=== PATIENT | male | born 1990 ===

== ENCOUNTER 2017-01-05 15:17 | Emergency (ER) | payer OTHER ==
[2017-01-05 15:35] VITALS: BP 128/67
--- NOTE | 2017-01-05 15:57 | ERNOTE ---
Integumentary HPI - Narrative Date of Service: 01/05/17 - General Presenting Symptoms: abscess Time Seen by Provider: 01/05/17 15:43 Source: patient Exam Limitations: no limitations - Immun/Allergies/Home Medications Immunizations: IMMUNIZATION HX Immunizations Up to Date Yes History of Influenza Vaccine No Hx Pneumococcal Vaccination No Allergies/Adverse Reactions: Allergies Allergy/AdvReac Type Severity Reaction Status Date / Time No Known Allergies Allergy Unverified 01/05/17 15:35 Home Medications: HOME MEDICATIONS Sulfamethoxazole/Trimethoprim [Bactrim Ds] 1 tab PO BID 01/05/17 [Last Taken ] - History of Present Illness Narrative: Pt. comes in from retirement with c/o abscess in his R volar and dorsal hand in the soft tissue between her R thumb and first finger for a week. Pt. was seen by his PCP for this and started on amoxacillin and then was switched to Bactrim two days ago after pt. was known to have a hx of MRSA. Pt. 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 Review of Systems - Review of Systems Constitutional: Present: no symptoms reported. Absent: recent illness, fever, chills, weakness, fatigue, malaise EYE: Present: no symptoms reported ENT: Present: no symptoms reported Respiratory: Present: no symptoms reported. Absent: shortness of breath, cough , wheezing Cardiology: Present: no symptoms reported. Absent: chest pain, palpitations, edema Gastrointestinal/Abdominal: Present: no symptoms reported. Absent: nausea, vomiting, diarrhea Genitourinary: Present: no symptoms reported Musculoskeletal: Present: no symptoms reported. Absent: back pain, joint pain Skin: Present: other - blister with surrounding redness Neurological: Present: no symptoms reported. Absent: headache, dizziness/light- headedness, numbness, tingling All Other Systems: All systems neg except as marked - Patient's Past Medical History Patient History - Medical: No pertinent hx Patient History - Cardiac/Respiratory: No pertinent hx Patient History - Cancer: No Hx of Cancer Patient History - Surgical Procedures: No surgical history Patient History - Other: None - Family History Mother Family History - Medical: No pertinent hx Family History - Cardiac/Respiratory: No pertinent hx Family History - Cancer: No pertinent family hx Father Family History - Medical: , Renal Disease, Renal Failure Family History - Cardiac/Respiratory: No pertinent hx Family History - Cancer: No pertinent family hx - Social History Living Situations: spouse Abuse History: No History of abuse Psych History: Hx of Anxiety, Hx of Depression, Hx of Suicide Attempt, Hx of Psychiatric Tx Smoking Status: Current every day smoker Have you smoked in the past 12 months: Yes Do you dip or chew tobacco: Yes Alcohol Use: rarely Drug Use: meth - Immunizations Immunizations Up to Date: Yes Hx Pneumococcal Vaccination: No History of Influenza Vaccine: No Physical Exam - Physical Exam General Appearance: Present: wd/wn, alert, no apparent distress Head Exam: Present: normal inspection, no evidence of injury Eye Exam: Normal inspection: bilateral, PERRL: bilateral, EOMI: bilateral Ears, Nose, Throat: Present: normal ENT inspection, normal pharynx Neck: Present: normal inspection, nontender. Absent: lymphadenopathy (R), lymphadenopathy (L) Respiratory: Present: no respiratory distress, normal breath sounds, no accessory muscle use, chest nontender, lungs clear Cardiovascular/Chest: Present: regular rate, rhythm, no murmur, normal peripheral pulses Extremity Exam: Present: non-tender, normal range of motion, joint swelling - L hand Neurological Exam: Present: alert, oriented, normal mood/affect, no motor/ sensory deficits Skin Exam: Present: other - abscess with ballotable fluid L proximal hand ED Progress - Vital Signs Patient's Vital Signs:: I have reviewed the patient's vital signs. Vital Signs: Vital Signs 01/05/17 15:26 Temperature 36.6 C Pulse Rate 78 Respiratory 14 Rate Blood Pressure 128/67 O2 Sat by Pulse 98 Oximetry - Progress/Reassessment Chief Complaint: Abscess Procedures Left Medial Hand I & D Prep: other - alcohol Blade Size: 20ga nedle Findings and Actions: purulent drainage small Complications: Pt wendy procedure well Departure Clinical Impression: Abscess - Departure Disposition: Home self-care Condition: Good Instructions: Abscess, [id number] Additional Instructions: Please follow up with retirement provider if not improving Referrals: Shukri Huston MD [Primary Care Provider] -
== END 2017-01-05 16:03 | disposition home or self-care (01) ==
LOC: ER 15:17
PROC: 0H9FXZZ Drainage of Right Hand Skin, External Approach (ICD-10-PCS; principal; 2017-01-05)
DX: L02.511 Cutaneous abscess of right hand (principal); F17.200 Nicotine dependence, unspecified, uncomplicated